=== PATIENT | male | born 1950 | race Caucasian/White ===

== ENCOUNTER → 2018-02-07 | Outpatient (CLI) | payer MEDICARE ==
[~2018-02-07] MED LIST: ASCO10004 PO; ASPI325T17 PO; CEPH-368 PO; CHOL500015 PO; CLOB15CR19 TP; EZET10TA18 PO; FENO145T32 PO; GARL5000 PO; LISI-170 PO; MULT-658 PO; OMEG1CAP2 PO; OMEP-110 PO; ONDA4TAB7 PO; OXYC-302 PO; POTA99TA2 PO; REGADENOSON 0.4 MG/5 ML SYRINGE ONE; RESV250C2 PO; ROSU20TA PO; UBID1CAP43 PO; cinsulin PO
== END | disposition home or self-care (01) ==
LOC: CFH 07:51
PROVIDERS: ATTEND Internal Medicine Cardiovascular Disease
DX: I25.10 Atherosclerotic heart disease of native coronary artery without angina pectoris (principal); I10 Essential (primary) hypertension
CPT/HCPCS: 78452; 93017; A9502; J2785

== ENCOUNTER → 2018-02-18 | Outpatient (CLI) | payer MEDICARE ==
[~2018-02-18] MED LIST changes: +ASPI-650 PO; +CALC-160 PO; +EVOL140S SC; -REGADENOSON 0.4 MG/5 ML SYRINGE ONE; +[UNRECOGNIZED DRUG - CODE] PO
[2018-02-18 09:24] LABS: BASOPHILS # (AUTO) 0.07 x10^3/uL (0-0.1); BASOPHILS % (AUTO) 1 % (0-1); EOSINOPHILS # (AUTO) 0.07 x10^3/uL (0-0.4); EOSINOPHILS % (AUTO) 1 % (1-7); LYMPHOCYTES # (AUTO) 1.81 x10^3/uL (1-3.4); LYMPHOCYTES % (AUTO) 34 % (22-44); MD NO; MEAN CORPUSCULAR HGB CONC 34.2 g/dL (33.2-36.2); MEAN CORPUSCULAR VOLUME 96.7 fL (81-97); MEAN PLATELET VOLUME 5.9 fL (7.4-10.4); MONOCYTES % (AUTO) 9 % (2-9); NEUTROPHILS # (AUTO) 2.83 x10^3/uL (1.8-6.8); NEUTROPHILS % (AUTO) 54 % (42-75); PLATELET COUNT 436 x10^3/uL (130-400); RED BLOOD COUNT 4.57 x10^6/uL (4.38-5.82); RED CELL DISTRIBUTION WIDTH 12.8 % (9.4-14.8)
[2018-02-18 09:25] LABS: HCT (SEDRATE) 44.2 % (39.2-51.8)
[2018-02-18 09:35] LABS: ALANINE AMINOTRANSFERASE 41 U/L (12-78); ALBUMIN 4.1 g/dL (3.4-5.0); ANION GAP 5 mmol/L (5-15); CALCIUM 9.6 mg/dL (8.5-10.1); CHLORIDE 106 mmol/L (98-107); CREATININE 1.34 mg/dL (0.7-1.3)
[2018-02-18 09:37] LABS: ALKALINE PHOSPHATASE 33 U/L (45-117); BILIRUBIN,TOTAL 0.5 mg/dL (0.2-1.0); TOTAL PROTEIN 7.6 g/dL (6.4-8.2)
[2018-02-18 09:51] LABS: INTERNATIONAL NORMALIZED RATIO 0.97 (0.93-1.1); PROTHROMBIN TIME 10.1 Seconds (9.6-11.5)
[2018-02-18 10:25] LABS: MICROSCOPIC NOT IND
[2018-02-18 10:27] LABS: CULTURE INDICATED? NO
== END | disposition home or self-care (01) ==
LOC: STAR 07:58
PROVIDERS: ATTEND Orthopaedic Surgery Orthopaedic Surgery of the Spine
DX: Z01.818 Encounter for other preprocedural examination (principal)
CPT/HCPCS: 36415; 71046; 80053; 81003; 85025; 85610; 85651; 85730; 93005